=== PATIENT | female | born 1980 | race Caucasian/White ===

== ENCOUNTER → 2020-03-29 | Outpatient (CLI) | payer OTHER ==
[2020-03-29 07:49] LABS: HEMOGLOBIN 14.4 gm/dl (12.3-15.3); RED BLOOD COUNT 4.91 M/UL (4.00-5.10); WHITE BLOOD COUNT 9.5 K/UL (4.5-11.0)
[2020-03-29 08:09] LABS: BUN/CREATININE RATIO 13 (0-10)
[2020-03-30 08:13] LABS: THYROXINE (T4) 6.3 ug/dL (4.5-12.0); VITAMIN D, 25-HYDROXY 27.6 ng/mL (30.0-100.0)
[2020-03-30 10:13] LABS: CREATININE, URINE 256.2 mg/dL (Not Estab.)
== END ==
LOC: LAB 07:10
PROVIDERS: Nurse Practitioner Family
DX: E11.9 Type 2 diabetes mellitus without complications (principal); F31.9 Bipolar disorder, unspecified; E78.5 Hyperlipidemia, unspecified; R53.83 Other fatigue; E55.9 Vitamin D deficiency, unspecified
CPT/HCPCS: 36415; 80053; 80061; 82043; 82570; 83036; 84436; 84443; 84480; 85025